=== PATIENT | male | born 1935 | race Caucasian/White ===

== ENCOUNTER 2021-05-03 08:45 | Day surgery (SDC) | payer MEDICARE, OTHER ==
[2021-05-03] MEDS ORDERED: Povidone-Iodine 5% Sterile Ophth Soln 30 ML Bottle EYELF ONE ×2 (09:00→09:59)
[2021-05-03] MEDS ORDERED: Timolol Maleate 0.5% Ophth Soln 5 ML Bottle EYELF ONE (09:00)
[2021-05-03] MEDS ORDERED: Acetaminophen 325 MG Tab PO PRN (09:00)
[2021-05-03] MEDS ORDERED: Tropicamide 1% Ophth Soln 15 ML Bottle EYELF ONE (09:00)
[2021-05-03] MEDS ORDERED: Phenylephrine 10% Ophth Soln 5 ML Bot EYELF ONE ×2 (09:00→10:00)
[2021-05-03] MEDS ORDERED: Moxifloxacin 0.5% Ophth Soln 3 ML Bottle EYELF ONE (09:00)
[2021-05-03] MEDS ORDERED: Acetaminophen/Codeine 300-30 MG Tab PO PRN (09:00)
[2021-05-03] MEDS ORDERED: Ondansetron 4 MG/2 ML SDV IVPUSH PRN (09:00)
[2021-05-03] MEDS ORDERED: Cataract Ophth Solution EYELF ONE (09:00)
[2021-05-03] MEDS ORDERED: Proparacaine 0.5% Ophth Soln 15 ML Bottle EYELF ONE (09:00)
[2021-05-03] MEDS ORDERED: Sodium Chloride 0.9% 10 ML Syringe FLUSH PRN (09:00)
[2021-05-03] MEDS ORDERED: Lidocaine 1% 30 ML SDV ONE (09:56)
[2021-05-03] MEDS ORDERED: Tetracaine HCl/PF 0.5% 4 ML Bottle EYELF ONE (09:58)
[2021-05-03] MEDS ORDERED: Diclofenac Sodium 0.1% Ophth Soln 5 ML Bottle EYELF ONE (09:58)
[2021-05-03] MEDS ORDERED: Chondroitin Sulfate/Hyaluronate Sodium Ophth Inj 0.5 ML Syringe IOCULAR ONE (09:59)
[2021-05-03] MEDS ORDERED: Apraclonidine 0.5% Ophth Soln 5 ML Bot EYELF ONE (09:59)
[2021-05-03] MEDS ORDERED: Vancomycin 500 MG SDV EYELF ONE (09:59)
[2021-05-03] MEDS ORDERED: Balanced Salt Solution Ophth Irrig 500 ML Bottle IOCULAR ONE (09:59)
[2021-05-03] MEDS ORDERED: Chondroitin Sulfate/Hyaluronate Sodium Ophth Inj 0.75 ML Syringe EYELF ONE (09:59)
[2021-05-03] MEDS ORDERED: Acetylcholine 20 MG/2 ML Intraocular Inj Kit EYELF ONE (10:00)
--- NOTE | 2021-05-05 01:40 | OR ---
DATE: 05/03/2021 PREOPERATIVE DIAGNOSES: 1. Visually significant mixed cataract, left eye. 2. Primary open angle glaucoma, left eye. POSTOPERATIVE DIAGNOSES: 1. Visually significant mixed cataract, left eye. 2. Primary open angle glaucoma, left eye. PROCEDURES: 1. Extracapsular cataract extraction with intraocular lens implant. 2. Placement of iStent for glaucoma control. SURGEON: Parmjit Toth MD ANESTHESIA: Local MAC. INDICATION: Mr. Burkett was seen in the clinic. He is unhappy with his vision noticing a progressive change. I saw his regular director of intelligence, Dr. Smith. Dr. Smith was not able to improve his vision and meet his visual needs with a change in glasses. He has difficulty seeing television, difficulty seeing at distance, difficulty seeing newspapers, and he is unhappy. Examination revealed visually significant mixed cataract and mild primary open-angle glaucoma. I have explained options, offered cataract surgery, and I explained risks including, but not limited to infection, retinal detachment, loss of vision, need for additional surgery amongst others. We have discussed implant options. He has requested a monofocal implant. He is comfortable wearing glasses following surgery if necessary. I recommended surgery with the iStent. OPERATIVE DESCRIPTION: The patient was prepped and draped in a sterile fashion and topical anesthesia was applied. Attention was placed on the operative eye. A sterile lid speculum was placed to allow operative exposure. Paracentesis was made temporal. Intracameral lidocaine was administered. Viscoelastic was injected. A full-thickness corneal incision was made using the trapezoidal blade. Bent needle cystotome was then used to make a small anand in the anterior capsule and a 360-degree curvilinear capsulorrhexis was created. Nucleus was then hydrodissected and hydrodelinated using balanced saline solution. Nucleus was then decompressed centrally and rotated and noted to be free of adhesions. Nucleus was then removed using the phacoemulsification handpiece. Additional viscoelastic was then injected into the capsular bag and the intraocular lens was inserted into the capsular bag. The iStent portion of the procedure was then performed. Following removal of the nucleus and cortex, the irrigation and aspiration handpiece was inserted to remove viscoelastic from the posterior surface of the IOL. Additional viscoelastic was then inserted into the anterior chamber angle directly opposite the corneal incision. Miochol was injected into the nasal iris to promote pupillary contraction. The patient's head was then rotated 35 degrees away from the initial position. The operating microscope was also rotated 35 degrees to achieve the proper orientation. The gonioprism was then placed onto the eye. The iStent was then inserted into the anterior chamber with the right hand and the stent was introduced into the pigmented trabecular meshwork. The stent was advanced beneath the trabecular meshwork until approximately two-thirds of the body was covered and then the stent was released from the insertion device. The stent was then tapped into its final resting position using the insertion device. The device was then reinspected to ensure that it was securely in position. The viscoelastic was aspirated from the anterior chamber. Wound and paracentesis sites were hydrated using balanced saline solution. Vancomycin 0.1 mL was injected into the anterior chamber. Intraocular lens was inspected and noted to be clear and well centered. Postoperative drops were placed and a sterile eye patch and shield were placed over the operative eye. The patient was then transported to the postoperative recovery area having tolerated the procedure well. No complications occurred. [facility] /[id number]
== END 2021-05-03 11:15 | disposition home or self-care (01) ==
LOC: DL.SDS 08:45
PROVIDERS: ATTEND Ophthalmology
DX: H26.8 Other specified cataract (principal); H40.1121 Primary open-angle glaucoma, left eye, mild stage; Z87.891 Personal history of nicotine dependence; Z79.82 Long term (current) use of aspirin; Z79.899 Other long term (current) drug therapy; Z86.73 Personal history of transient ischemic attack (TIA), and cerebral infarction without residual deficits
CPT/HCPCS: 00142; 0191T; 66984; J3370; C1783; V2632

== ENCOUNTER 2021-05-31 09:34 | Day surgery (SDC) | payer MEDICARE, OTHER ==
[~2021-05-31 09:34] MED LIST: Acetaminophen 325 MG Tab PO PRN; Acetaminophen/Codeine 300-30 MG Tab PO PRN; Cataract Ophth Solution EYERT ONE; Moxifloxacin 0.5% Ophth Soln 3 ML Bottle EYERT ONE; Ondansetron 4 MG/2 ML SDV IVPUSH PRN; Phenylephrine 10% Ophth Soln 5 ML Bot EYERT ONE; Povidone-Iodine 5% Sterile Ophth Soln 30 ML Bottle EYERT ONE; Proparacaine 0.5% Ophth Soln 15 ML Bottle EYERT ONE; Sodium Chloride 0.9% 10 ML Syringe FLUSH PRN; Timolol Maleate 0.5% Ophth Soln 5 ML Bottle EYERT ONE; Tropicamide 1% Ophth Soln 15 ML Bottle EYERT ONE
[2021-05-31] MEDS ORDERED: Dexamethasone 4 MG/ML SDV IV ONE (09:35)
[2021-05-31] MEDS ORDERED: Midazolam 1 MG/ML 2 ML SDV IV ONE (09:35)
[2021-05-31] MEDS ORDERED: Sodium Chloride 0.9% 10 ML Syringe IV ONE (09:35)
[2021-05-31] MEDS ORDERED: Tropicamide 1% Ophth Soln 15 ML Bottle EYERT ONE (10:15)
[2021-05-31] MEDS ORDERED: Cataract Ophth Solution EYERT ONE (10:15)
[2021-05-31] MEDS ORDERED: Sodium Chloride 0.9% 10 ML Syringe FLUSH PRN (10:15)
[2021-05-31] MEDS ORDERED: Timolol Maleate 0.5% Ophth Soln 5 ML Bottle EYERT ONE (10:15)
[2021-05-31] MEDS ORDERED: Acetaminophen 325 MG Tab PO PRN (10:15)
[2021-05-31] MEDS ORDERED: Proparacaine 0.5% Ophth Soln 15 ML Bottle EYERT ONE (10:15)
[2021-05-31] MEDS ORDERED: Acetaminophen/Codeine 300-30 MG Tab PO PRN (10:15)
[2021-05-31] MEDS ORDERED: Ondansetron 4 MG/2 ML SDV IVPUSH PRN (10:15)
[2021-05-31] MEDS ORDERED: Phenylephrine 10% Ophth Soln 5 ML Bot EYERT ONE (10:15)
[2021-05-31] MEDS ORDERED: Moxifloxacin 0.5% Ophth Soln 3 ML Bottle EYERT ONE (10:15)
[2021-05-31] MEDS ORDERED: Povidone-Iodine 5% Sterile Ophth Soln 30 ML Bottle EYERT ONE ×2 (10:15→10:53)
[2021-05-31] MEDS ORDERED: Tetracaine HCl/PF 0.5% 4 ML Bottle EYERT ONE (10:52)
[2021-05-31] MEDS ORDERED: Diclofenac Sodium 0.1% Ophth Soln 5 ML Bottle EYERT ONE (10:53)
[2021-05-31] MEDS ORDERED: Apraclonidine 0.5% Ophth Soln 5 ML Bot EYERT ONE (10:53)
[2021-05-31] MEDS ORDERED: Dexamethasone/Neomycin/Polymyxin B Ophth Oint 3.5 GM Tube EYERT ONE (10:53)
[2021-05-31] MEDS ORDERED: Lidocaine 1% 30 ML SDV ONE (10:54)
[2021-05-31] MEDS ORDERED: Chondroitin Sulfate/Hyaluronate Sodium Ophth Inj 0.75 ML Syringe EYERT ONE (10:55)
[2021-05-31] MEDS ORDERED: Balanced Salt Solution Ophth Irrig 500 ML Bottle IOCULAR ONE (10:55)
[2021-05-31] MEDS ORDERED: Chondroitin Sulfate/Hyaluronate Sodium Ophth Inj 0.5 ML Syringe IOCULAR ONE (10:56)
[2021-05-31] MEDS ORDERED: Vancomycin 500 MG SDV EYERT ONE (10:56)
[2021-05-31] MEDS ORDERED: Acetylcholine 20 MG/2 ML Intraocular Inj Kit EYERT ONE (10:56)
[2021-05-31] MEDS ORDERED: Dexamethasone 4 MG/ML SDV IOCULAR ONE (11:02)
--- NOTE | 2021-06-01 07:44 | OR ---
DATE: 05/31/2021 PREOPERATIVE DIAGNOSES: 1. Visually significant mixed cataract, right eye. 2. Primary open angle glaucoma, right eye. POSTOPERATIVE DIAGNOSES: 1. Visually significant mixed cataract, right eye. 2. Primary open angle glaucoma, right eye. PROCEDURES: 1. Extracapsular cataract extraction with intraocular lens implant. 2. Placement of iStent for glaucoma control. SURGEON: Parmjit Toth MD ANESTHESIA: Local MAC. INDICATION: Mr. Burkett was seen in the clinic. He was unhappy with his vision. He is complaining of difficulty seeing television, difficulty seeing newspapers, difficulty seeing small print, and he has noticed a progressive change. He has seen his regular manager management, Dr. Smith. Dr. Smith was not able to improve his vision and meet his visual needs with a change in glasses. He has a history of mild primary open-angle glaucoma, currently treated with latanoprost. I explained options, offered cataract surgery, and I explained risks including the potential for infection, retinal detachment, loss of vision, need for additional surgery, amongst others. We have discussed implant options. He has requested a mono focal implant. I recommended surgery with the iStent. OPERATIVE DESCRIPTION: The patient was prepped and draped in a sterile fashion and topical anesthesia was applied. Attention was placed on the operative eye. A sterile lid speculum was placed to allow operative exposure. Paracentesis was made temporal. Intracameral lidocaine was administered. Viscoelastic was injected. A full-thickness corneal incision was made using the trapezoidal blade. Bent needle cystotome was then used to make a small anand in the anterior capsule and a 360-degree curvilinear capsulorrhexis was created. Nucleus was then hydrodissected and hydrodelinated using balanced saline solution. Nucleus was then decompressed centrally and rotated and noted to be free of adhesions. Nucleus was then removed using the phacoemulsification handpiece. Additional viscoelastic was then injected into the capsular bag and the intraocular lens was inserted into the capsular bag. The iStent portion of the procedure was then performed. Following removal of the nucleus and cortex, the irrigation and aspiration handpiece was inserted to remove viscoelastic from the posterior surface of the IOL. Additional viscoelastic was then inserted into the anterior chamber angle directly opposite the corneal incision. Miochol was injected into the nasal iris to promote pupillary contraction. The patient's head was then rotated 35 degrees away from the initial position. The operating microscope was also rotated 35 degrees to achieve the proper orientation. The gonioprism was then placed onto the eye. The iStent was then inserted into the anterior chamber with the right hand and the stent was introduced into the pigmented trabecular meshwork. The stent was advanced beneath the trabecular meshwork until approximately two-thirds of the body was covered and then the stent was released from the insertion device. The stent was then tapped into its final resting position using the insertion device. The device was then reinspected to ensure that it was securely in position. The viscoelastic was aspirated from the anterior chamber. Wound and paracentesis sites were hydrated using balanced saline solution. Vancomycin 0.1 mL was injected into the anterior chamber. Intraocular lens was inspected and noted to be clear and well centered. Postoperative drops were placed and a sterile eye patch and shield were placed over the operative eye. The patient was then transported to the postoperative recovery area having tolerated the procedure well. No complications occurred. [facility] /[id number]
== END 2021-05-31 12:11 | disposition home or self-care (01) ==
LOC: DL.SDS 09:34
PROVIDERS: ATTEND Ophthalmology
DX: H40.1111 Primary open-angle glaucoma, right eye, mild stage (principal); H26.8 Other specified cataract; E66.9 Obesity, unspecified; Z79.899 Other long term (current) drug therapy; Z79.82 Long term (current) use of aspirin; Z98.890 Other specified postprocedural states; Z86.73 Personal history of transient ischemic attack (TIA), and cerebral infarction without residual deficits
CPT/HCPCS: 00142; A9270-GY; C1783; J1100; J2250; J3370; V2632